=== PATIENT | male | born 2000 | race Caucasian/White ===

== ENCOUNTER 2025-06-25 13:33 | Emergency (ER) | payer SELFPAY ==
[~2025-06-25] VITALS: Ht 182.9 cm; Wt 48.5 kg
== END 2025-06-25 15:10 | disposition home or self-care (01) ==
LOC: ER 13:33
DX: J93.83 Other pneumothorax (principal); Z88.1 Allergy status to other antibiotic agents; F17.290 Nicotine dependence, other tobacco product, uncomplicated
CPT/HCPCS: 99284

== ENCOUNTER → 2025-06-25 | Outpatient (CLI) | payer SELFPAY ==
[2025-06-25 12:42] LABS: BASOPHILS ABSOLUTE AUTO 0.05 K/mm3 (0.00-0.23); BASOPHILS PERCENT AUTO 1 % (0-2); EOSINOPHILS ABSOLUTE AUTO 0.11 K/mm3 (0.00-0.68); EOSINOPHILS PERCENT AUTO 1 % (0-6); Hematocrit 51.2 % (37.0-53.0); Hemoglobin 18.2 g/dL (13.5-17.5); IMMATURE GRAN ABSOLUTE AUTO 0.12 K/mm3 (0.00-0.10); IMMATURE GRAN PERCENT AUTO 1 % (0-1); LYMPHOCYTES ABSOLUTE AUTO 1.85 K/mm3 (0.84-5.20); LYMPHOCYTES PERCENT AUTO 20 % (21-46); MONOCYTES ABSOLUTE AUTO 0.97 K/mm3 (0.16-1.47); MONOCYTES PERCENT AUTO 10 % (4-13); Mean Corpuscular HGB Conc 35.5 g/dL (31.5-36.5); Mean Corpuscular Volume 85 fL (80-100); NEUTROPHILS ABSOLUTE AUTO 6.35 K/mm3 (1.96-9.15); NEUTROPHILS PERCENT AUTO 67 % (41-73); NRBC ABSOLUTE 0.00 K/mm3 (0.00-0.02); NRBC Auto 0.0 /100 WBC (0.0-0.2); Platelet Count 180 K/mm3 (150-400); RDW Coefficient Variation 11.8 % (11.7-14.2); RDW Standard Deviation 35.8 fL (35.1-46.3)
[2025-06-25 13:02] LABS: Alanine Aminotransfer (ALT/SGP 11.0 U/L (12-78); Albumin, Blood 5.5 g/dL (3.4-5.0); Albumin/Globulin Ratio 1.7 (0.8-1.8); Anion Gap 23.0 mmol/L (3-11); Aspartate Aminotrans (AST/SGOT 14.0 U/L (12-37); Bilirubin, Total 1.3 mg/dL (0.1-1.0); Blood Urea Nitrogen 9.0 mg/dL (8-24); CO2, Blood 22.0 mmol/L (21-32); Calcium, Blood 10.5 mg/dL (8.5-10.1); Chloride, Blood 99.0 mmol/L (98-108); Creatinine, Blood 0.96 mg/dL (0.60-1.20); Globulin, Blood 3.2 g/dL (2.2-4.0); Glucose, Blood 101.0 mg/dL (70-99); Potassium, Blood 3.5 mmol/L (3.5-5.5); Sodium, Blood 140.0 mmol/L (136-145); Thyroid Stimulating Hormone 1.217 uIU/mL (0.360-4.800); Total Protein, Blood 8.7 g/dL (6.4-8.2)
== END ==
LOC: LAB SHORT 12:36 → LAB 12:36
PROVIDERS: Physician Assistant
DX: R00.0 Tachycardia, unspecified (principal)
CPT/HCPCS: 80053; 84443; 84484; 85025; 85379

== ENCOUNTER 2025-06-26 07:58 | Emergency (ER) | payer SELFPAY ==
[~2025-06-26] VITALS: Ht 182.9 cm; Wt 48.1 kg
== END 2025-06-26 09:30 | disposition home or self-care (01) ==
LOC: ER 07:58
DX: J93.83 Other pneumothorax (principal); F17.290 Nicotine dependence, other tobacco product, uncomplicated; Z88.0 Allergy status to penicillin
CPT/HCPCS: 71046; 93005; 93010; 99284-25; A9270

== ENCOUNTER 2025-06-27 15:36 | Emergency (ER) | payer SELFPAY ==
[~2025-06-27] VITALS: Ht 185.4 cm; Wt 48.5 kg
== END 2025-06-27 16:30 | disposition home or self-care (01) ==
LOC: ER 15:36
DX: J93.83 Other pneumothorax (principal); F17.290 Nicotine dependence, other tobacco product, uncomplicated; Z88.0 Allergy status to penicillin
CPT/HCPCS: 71045; 99284-25

== ENCOUNTER 2025-06-29 16:05 | Emergency (ER) | payer SELFPAY ==
[~2025-06-29] VITALS: Ht 182.9 cm; Wt 48.5 kg
== END 2025-06-29 17:17 | disposition left against medical advice (07) ==
LOC: ER 16:05
DX: R07.9 Chest pain, unspecified (principal); M54.9 Dorsalgia, unspecified; Z53.29 Procedure and treatment not carried out because of patient's decision for other reasons
CPT/HCPCS: 71046; 99281-25

== ENCOUNTER 2025-07-01 11:30 | Emergency (ER) | payer SELFPAY ==
[~2025-07-01] VITALS: Ht 185.4 cm; Wt 49.0 kg
[2025-07-01] MEDS ORDERED: Ketorolac Tromethamine 15mg Vial IM ONE (12:20)
[2025-07-01] MEDS ORDERED: KETO10 PO (15:46)
== END 2025-07-01 15:50 | disposition home or self-care (01) ==
LOC: ER 11:30
DX: J93.83 Other pneumothorax (principal); F17.290 Nicotine dependence, other tobacco product, uncomplicated; Z88.1 Allergy status to other antibiotic agents; Z59.89 Other problems related to housing and economic circumstances
CPT/HCPCS: 96372; 99283-25; A9270

== ENCOUNTER 2025-11-01 17:58 | Inpatient (IN) | payer OTHER ==
[~2025-11-01] VITALS: Ht 182.9 cm; Wt 63.5 kg
[~2025-11-01 17:58] MED LIST: KETO10 PO
[2025-11-01] MEDS ORDERED: Ketorolac Tromethamine 30mg Vial IM ONE (18:35)
[2025-11-01] MEDS ORDERED: FLU VACC TS2025-26(6MOS UP)/PF 45 MCG/0.5 ML SYRINGE IM SCH (23:15)
[2025-11-01] MEDS ORDERED: NS 1,000 ML IV SCH (23:15)
[2025-11-01] MEDS ORDERED: Ondansetron HCl 2 MG / ML 2ML Vial IV PRN (23:15)
[2025-11-01] MEDS ORDERED: Ketorolac Tromethamine 15mg Vial IV PRN (23:15)
[2025-11-01] MEDS ORDERED: FentaNYL Citrate 50 MCG/ML 2 ML Injection IV PRN (23:15)
[2025-11-01] MEDS ORDERED: Enoxaparin 40 MG/0.4 ML SYR SC SCH (23:31)
--- NOTE | 2025-11-02 01:21 | NUR ---
TELE NOTIFED NURSING STAFF OF INVERTED T-WAVE AND ST CHANGES. PT ASYMPTOMATIC. SOCIAL MEDIA COORDINATOR PROVIDER NOTIFIED WITH NO NEW ORDERS.
[2025-11-02 01:23] VITALS: BP 140/81
[2025-11-02 02:52] VITALS: BP 128/67
--- NOTE | 2025-11-02 05:34 | NUR ---
SHIFT SUMMARY PT ADMITTED TO ROOM 327 FROM ED FOR SPONTANEOUS LEFT PNEUMOTHORAX. PT MAINTAINED ON 10L OXYMASK PER RT WITH SATS HIGH 90'S ON CONTINUOUS PULSE OX. PT MEDICATED FOR PAIN WITH TORADOL PER EMAR WITH STATED RELIEF. IVF INFUSING PER ORDER. PT SLEPT INTERMITTENTLY DURING THE NIGHT.
[2025-11-02 06:05] LABS: BASOPHILS ABSOLUTE AUTO 0.04 K/mm3 (0.00-0.23); BASOPHILS PERCENT AUTO 1 % (0-2); EOSINOPHILS ABSOLUTE AUTO 0.16 K/mm3 (0.00-0.68); EOSINOPHILS PERCENT AUTO 3 % (0-6); Hematocrit 45.6 % (37.0-53.0); Hemoglobin 15.5 g/dL (13.5-17.5); IMMATURE GRAN ABSOLUTE AUTO 0.02 K/mm3 (0.00-0.10); IMMATURE GRAN PERCENT AUTO 0 % (0-1); LYMPHOCYTES ABSOLUTE AUTO 1.84 K/mm3 (0.84-5.20); LYMPHOCYTES PERCENT AUTO 31 % (21-46); MONOCYTES ABSOLUTE AUTO 0.50 K/mm3 (0.16-1.47); MONOCYTES PERCENT AUTO 9 % (4-13); Mean Corpuscular HGB Conc 34.0 g/dL (31.5-36.5); Mean Corpuscular Volume 90 fL (80-100); NEUTROPHILS ABSOLUTE AUTO 3.35 K/mm3 (1.96-9.15); NEUTROPHILS PERCENT AUTO 57 % (41-73); NRBC ABSOLUTE 0.00 K/mm3 (0.00-0.02); NRBC Auto 0.0 /100 WBC (0.0-0.2); Platelet Count 141 K/mm3 (150-400); RDW Coefficient Variation 11.8 % (11.7-14.2); RDW Standard Deviation 38.7 fL (35.1-46.3)
[2025-11-02 06:37] LABS: Alanine Aminotransfer (ALT/SGP 26.0 U/L (12-78); Albumin, Blood 3.8 g/dL (3.4-5.0); Albumin/Globulin Ratio 1.4 (0.8-1.8); Anion Gap 9.0 mmol/L (3-11); Aspartate Aminotrans (AST/SGOT 16.0 U/L (12-37); Bilirubin, Total 1.0 mg/dL (0.1-1.0); Blood Urea Nitrogen 20.0 mg/dL (8-24); CO2, Blood 26.0 mmol/L (21-32); Calcium, Blood 8.8 mg/dL (8.5-10.1); Chloride, Blood 104.0 mmol/L (98-108); Creatinine, Blood 0.91 mg/dL (0.60-1.20); Globulin, Blood 2.8 g/dL (2.2-4.0); Glucose, Blood 113.0 mg/dL (70-99); Potassium, Blood 3.6 mmol/L (3.5-5.5); Sodium, Blood 135.0 mmol/L (136-145); Total Protein, Blood 6.6 g/dL (6.4-8.2)
--- NOTE | 2025-11-02 09:35 | NUR ---
RN note verbal order from Dr Coburn to discontinue IVF bag. Dr Coburn discontinued high flow oxygen. Pulse ox 97% on room air.
[2025-11-02 13:57] VITALS: BP 114/60
[2025-11-02] MEDS ORDERED: Ipratropium/Albuterol SulF 2.5-0.5MG/3 ML Amp INH SCH (16:25)
[2025-11-02 16:35] VITALS: BP 123/62
--- NOTE | 2025-11-02 16:51 | NUR ---
SHIFT SUMMARY MR CASON IS ALERT, ORIENTATED X4. C/O 6-06/08 LEFT CHEST PAIN HELPED WITH TORADOL X1. HE WAS 10L OXYGEN MASK AT START OF SHIFT, OXYGEN DISCONTINUED BY DR PACHECO THIS MORNING AFTER CXR. NO C/O FEELING SHORT OF BREATH. PULSE OX IN THE HIGH 90S ON ROOM AIR. CHEST CT SCAN DONE THIS AFTERNOON AND DR RENTERIA CONSULTED, VERBAL ORDER TO PUT MR CASON BACK ON OXYGEN FACE MASK AT 6L AT ~1545HRS. POOR APPETITE, OFFERED SNACKS AND SUPPLIMENTS. HE IS DRINKING FLUIDS BUT NOT EATING MUCH. ENCOURAGED TO INCREASE NUTRITION. ON TELEMETRY SINUS ARRHYTHMIA WITH INVERTED T WAVES, NO CALLS FROM RECYCLING OR RUBBISH COLLECTOR. MOTHER VISITED TODAY. BED LOW, CALL LIGHT IN REACH.
[2025-11-02 21:38] VITALS: BP 131/74
--- NOTE | 2025-11-02 23:52 | NUR ---
O2 BREAK- PT REPORTS FEELING CLAUSTROPHOBIC AND LIGHT HEADED. MOVED O2 TO [place] TO SEE IF SYMPTOMS WILL RESOLVE AND RESUME FACE MASK AT THAT TIME.
[2025-11-03 04:32] VITALS: BP 120/69
--- NOTE | 2025-11-03 05:04 | NUR ---
SHIFT SUMMARY- THE PATIENT RESTED COMFORTABLY OVERNIGHT, REPORTING NO OVERNIGHT EVENTS. OVERALL, HIS CHEST PAIN HAS IMPROVED, WITH ONLY MILD DISCOMFORT MANAGED PER EMR AMBULATION- INDEPENDENT ELIMINATION- INDEPENDENT AMBULATION- INDEPENDENT ELIMINATION- INDEPENDENT MEDICATION- WHOLE WITH WATER
[2025-11-03 07:23] VITALS: BP 122/68
[2025-11-03 11:36] VITALS: BP 118/68
[2025-11-03] MEDS ORDERED: Tessalon200 MG PO (13:33)
--- NOTE | 2025-11-03 13:56 | NUR ---
PT DISCHARGED HOME TODAY. PT WALKED OUT OF HOSPITAL TO BE TAKEN HOME BY A FRIEND. DISCHARGE INTRUCTIONS WERE DISCUSSED BY THIS RN WITH THE PT, PT VERBALIZED UNDERSTANDING.
== END 2025-11-03 13:47 | disposition home or self-care (01) | DRG 201 ==
LOC: ER 17:58 → MEDS 17:59 → ER 17:59 → MEDS 11-02
PROVIDERS: ADMIT Internal Medicine
PROC: 5A0935A Assistance with Respiratory Ventilation, Less than 24 Consecutive Hours, High Flow/Velocity Cannula (ICD-10-PCS; principal; 2025-11-01)
DX: J93.11 Primary spontaneous pneumothorax (principal); J45.909 Unspecified asthma, uncomplicated; F17.290 Nicotine dependence, other tobacco product, uncomplicated; Z88.0 Allergy status to penicillin
CPT/HCPCS: 36415; 71045; 71046; 71250; 80053; 85025; 94640; 94664; 94760; 94762; 99285-25; G0378; J1650; J1885; J7030